=== PATIENT | female | born 1995 | race Caucasian/White ===

== ENCOUNTER 2017-11-11 22:23 | Emergency (ER) | payer SELFPAY ==
[2017-11-11 22:35] VITALS: BP 112/63
--- NOTE | 2017-11-11 23:15 | EDM.PDOC ---
ED HPI GENERAL MEDICAL PROBLEM - General Chief Complaint: Respiratory Problem Stated Complaint: CONGESTION CHEST PAIN AND HOT Time Seen by Provider: 11/11/17 22:39 Source of Information: Reports: Patient, Family History Limitations: Reports: No Limitations - History of Present Illness INITIAL COMMENTS - FREE TEXT/NARRATIVE: The patient presents with a cough, congestion and fever. This all started today. She has a subjective fever. She has some phlegm she is coughing up. She has no ear pain or throat pain. She is 11 weeks with a LNMP of August 24. She has no spotting or discharge. 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 She has no body aches at this time but she is tired. She does have some chest pain with coughing and deep breathing. Onset: Gradual Duration: Hour(s): Location: Reports: Chest Quality: Reports: Ache Severity: Mild Improves with: Reports: None Worsens with: Reports: Breathing (and coughing) Associated Symptoms: Reports: Chest Pain, Cough, cough w sputum, Fever/Chills. Denies: Nausea/Vomiting, Shortness of Breath Treatments BENCH MANAGER: Reports: Other (see below) Other Treatments BENCH MANAGER: none Chest Pain Score (Numeric/FACES): 3 - Related Data Allergies Allergy/AdvReac Type Severity Reaction Status Date / Time acetaminophen [From Percocet] Allergy Hives Verified 08/24/14 20:28 oxycodone HCl [From Percocet] Allergy Hives Verified 08/24/14 20:28 Home Meds: Home Meds PNV95/Ferrous Fumarate/FA [ Tablet] 1 tab PO DAILY 11/11/17 [History] Past Medical History - Past Health History Medical/Surgical History: Denies Medical/Surgical History Social & Family History - Tobacco Use Smoking Status *Q: Never Smoker Second Hand Smoke Exposure: No - Caffeine Use Caffeine Use: Reports: None - Alcohol Use Days Per Week of Alcohol Use: 0 - Recreational Drug Use Recreational Drug Use: No ED ROS GENERAL - Review of Systems Review Of Systems: See Below Constitutional: Reports: Fever, Fatigue HEENT: Reports: No Symptoms Respiratory: Reports: Cough Cardiovascular: Reports: Chest Pain Endocrine: Reports: No Symptoms, Fatigue GI/Abdominal: Reports: No Symptoms : Reports: No Symptoms ED EXAM, GENERAL - Physical Exam Exam: See Below Exam Limited By: No Limitations General Appearance: Alert, No Apparent Distress Ears: Normal External Exam, Normal Canal, Normal TMs Nose: Normal Inspection Throat/Mouth: Normal Inspection Head: Atraumatic, Normocephalic Neck: Normal Inspection Respiratory/Chest: No Respiratory Distress, Lungs Clear, Normal Breath Sounds Cardiovascular: Regular Rate, Rhythm, No Edema, No Murmur GI/Abdominal: Soft, Non-Tender, No Organomegaly, No Mass Back Exam: Normal Inspection Extremities: Normal Inspection Course - Vital Signs Last Recorded V/S: Last Vital Signs Temp 99.1 F 11/11/17 22:32 Pulse 104 H 11/11/17 22:32 Resp 20 11/11/17 22:32 BP 112/63 11/11/17 22:32 Pulse Ox 100 11/11/17 22:32 - Orders/Labs/Meds Orders: Active Orders 24 hr Category Date Time Status INFLUENZA A+B AG SCREEN [RM] Stat Lab 11/11/17 22:45 Ordered - Re-Assessments/Exams Free Text/Narrative Re-Assessment/Exam: 11/11/17 23:15 I ordered an influenza. 11/11/17 23:17 The influenza is negative. She has a viral URI. I will discharge her home. Departure - Departure Time of Disposition: 23:20 Disposition: Home, Self-Care 01 Condition: Good Clinical Impression: Viral upper respiratory infection Qualifiers: Weeks of gestation: 11 weeks Qualified Code(s): Z3A.11 - 11 weeks gestation of - Discharge Information Referrals: PCP,None [Primary Care Provider] - Forms: ED Department Discharge Additional Instructions: Drink plenty of fluids and get some rest. Take tylenol for any fever. Please return if you are worse. - My Orders Last 24 Hours: My Active Orders 11/11/17 22:45 INFLUENZA A+B AG SCREEN [RM] Stat - Assessment/Plan Last 24 Hours: My Active Orders 11/11/17 22:45 INFLUENZA A+B AG SCREEN [RM] Stat
== END 2017-11-11 23:23 | disposition home or self-care (01) ==
LOC: JD.ED 22:23
DX: O99.511 Diseases of the respiratory system complicating pregnancy, first trimester (principal); J06.9 Acute upper respiratory infection, unspecified; Z88.8 Allergy status to other drugs, medicaments and biological substances; Z79.899 Other long term (current) drug therapy; Z3A.11 11 weeks gestation of pregnancy
CPT/HCPCS: 87804; 99282; 99283

== ENCOUNTER 2019-01-18 20:32 | Emergency (ER) | payer MEDICAID, OTHER ==
[2019-01-18 21:07] VITALS: BP 134/87
[2019-01-18] MEDS ORDERED: Sodium Chloride 0.9% 10 ML Syringe FLUSH PRN (21:23)
[2019-01-18] MEDS ORDERED: Sodium Chloride 0.9% 1,000 ML IV ONE (21:23)
[2019-01-18] MEDS ORDERED: Prochlorperazine 10 MG/2 ML SDV IVPUSH ONE (21:23)
[2019-01-18] MEDS ORDERED: Ketorolac 30 MG/ML SDV IVPUSH ONE (21:24)
[2019-01-18] MEDS ORDERED: diphenhydrAMINE 50 MG/ML SDV IVPUSH ONE (21:24)
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
--- NOTE | 2019-01-19 07:30 | CT ---
Head CT Technique: Multiple axial sections through the brain were obtained. Intravenous contrast was not utilized. Comparison: No prior intracranial imaging. Findings: Ventricles along with basal cisterns and sulci over the convexities are within normal limits for the patient's age. No abnormal parenchymal densities are seen. No evidence of intracranial hemorrhage. No midline shift or mass effect is seen. Bone window settings were reviewed which show no acute calvarial abnormality. Slight mucosal thickening is incidentally noted within the left maxillary sinus. Visualized mastoid sinuses are clear. Impression: 1. Sinus findings which are felt to be incidental. 2. No acute intracranial abnormality is identified on noncontrast head CT exam. Diagnostic code #2 I agree with preliminary report from [facility], finalized on 01/18/19, lung 14 PM Central Time
--- NOTE | 2019-01-19 07:30 | CT ---
CT cervical spine Technique: Multiple axial sections were obtained from above C1 inferiorly to the bottom of T2. Reconstructed sagittal and coronal images were reviewed. Comparison: No prior cervical spine imaging. Findings: Vertebral body heights and disc spaces are maintained. No bony central or bony neural foraminal stenosis is seen. No fracture is identified. No abnormal subluxation is seen on the reconstructed sagittal images. Impression: 1. Nothing acute is seen on CT study of the cervical spine. Diagnostic code #1 I agree with preliminary report from [facility], finalized on 01/18/19, 11:16 PM Central Time
== END 2019-01-18 22:49 | disposition home or self-care (01) ==
LOC: JD.ED 20:32
DX: S16.1XXA Strain of muscle, fascia and tendon at neck level, initial encounter (principal); G43.909 Migraine, unspecified, not intractable, without status migrainosus; Z88.6 Allergy status to analgesic agent; Z86.2 Personal history of diseases of the blood and blood-forming organs and certain disorders involving the immune mechanism; V86.99XA Unspecified occupant of other special all-terrain or other off-road motor vehicle injured in nontraffic accident, initial encounter
CPT/HCPCS: 70450; 72125; 96361; 96374; 96375; 99284; J0780; J1200; J1885; J7040

== ENCOUNTER 2021-06-28 03:26 | Emergency (ER) | payer MEDICAID ==
[2021-06-28 03:41] VITALS: BP 136/81; PULSE 86
--- NOTE | 2021-06-28 03:53 | EDM.PDOC ---
ED [facility] GENERAL MEDICAL PROBLEM - General Chief Complaint: Gastrointestinal Problem Stated Complaint: ABD PAIN/NAUSEA Time Seen by Provider: 06/28/21 03:51 Source of Information: Reports: Patient History Limitations: Reports: No Limitations - History of Present Illness INITIAL COMMENTS - FREE TEXT/NARRATIVE: Patient is a 26-year-old female presented to the emergency room with a complaint of lower pelvic pain and cramping. Patient states the pain started while she was asleep. Patient reports the pain is previously being severe but is currently less severe. Pain is in the middle of her lower abdomen/pelvis. No radiation of symptoms. Patient reports associated nausea without vomiting. Patient denies any vaginal bleeding, vaginal discharge, dysuria, hematuria. Last menstrual period was June 03. Patient states she took a test 3 days ago and that was positive. 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: Psychiatric History: Reports: None Hematologic History: Reports: Anemia - Infectious Disease History Infectious Disease History: Reports: Novel Coronavirus Social & Family History - Family History Family Medical History: No Pertinent Family History - Tobacco Use Tobacco Use Status *Q: Never Tobacco User Second Hand Smoke Exposure: No - Caffeine Use Caffeine Use: Reports: Coffee, Energy Drinks - Recreational Drug Use Recreational Drug Use: No ED ROS GENERAL - Review of Systems Review Of Systems: See Below Free Text/Narrative/Comment: In addition to that documented in the HPI above, the additional ROS was obtained: Constitutional: Denies fevers or chills Eyes: Denies vision changes ENMT: Denies sore throat CV: Denies chest pain Resp: Denies SOB GI: Denies vomiting or diarrhea : Denies painful urination MSK: Denies recent trauma Skin: Denies new rashes Neuro: Denies new numbness or tingling or weakness Endocrine: Denies unexpected weight loss Heme: Denies bleeding disorders ED EXAM, GI/ABD - Physical Exam Exam: See Below Text/Narrative:: I have reviewed the triage vital signs Const: Well nourished, well developed, appears stated age Eyes: no conjunctival injection HENT: No signs of trauma or swelling, Neck supple without meningismus CV: Regular Rate Rhythm, Warm, well-perfused extremities RESP: Unlabored respiratory effort GI: soft, non-tender, non-distended, no masses MSK: No gross deformities appreciated Skin: Warm, dry. 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 Sensation and motor function of extremities grossly intact. Psych: Appropriate mood and affect. Course - Vital Signs Last Recorded V/S: Last Vital Signs Temp 36.3 C 06/28/21 03:39 Pulse 86 06/28/21 03:39 Resp 16 06/28/21 03:39 BP 136/81 06/28/21 03:39 Pulse Ox 98 06/28/21 03:39 - Orders/Labs/Meds Orders: Active Orders 24 hr Category Date Time Status OB Transvaginal [US] Stat Exams 06/28/21 05:06 Stop Req Labs: Laboratory Tests 06/28/21 06/28/21 06/28/21 Range/Units 04:00 04:00 04:00 WBC 5.87 (3.98-10.04) K/mm3 RBC 4.53 (3.98-5.22) M/mm3 Hgb 12.8 D (11.2-15.7) gm/dl Hct 38.9 (34.1-44.9) % MCV 85.9 D (79.4-94.8) fl MCH 28.3 (25.6-32.2) pg MCHC 32.9 (32.2-35.5) g/dl RDW Std Deviation 43.5 (36.4-46.3) fL Plt Count 262 (182-369) K/mm3 MPV 10.2 (9.4-12.3) fl Neut % (Auto) 61.2 (34.0-71.1) % Lymph % (Auto) 27.8 (19.3-51.7) % Gregory % (Auto) 9.5 (4.7-12.5) % Eos % (Auto) 1.0 (0.7-5.8) Baso % (Auto) 0.3 (0.1-1.2) % Neut # (Auto) 3.59 (1.56-6.13) K/mm3 Lymph # (Auto) 1.63 (1.18-3.74) K/mm3 Gregory # (Auto) 0.56 H (0.24-0.36) K/mm3 Eos # (Auto) 0.06 (0.04-0.36) K/mm3 Baso # (Auto) 0.02 (0.01-0.08) K/mm3 Sodium 141 (136-145) mEq/L Potassium 3.9 (3.5-5.1) mEq/L Chloride 104 (98-107) mEq/L Carbon Dioxide 25 (21-32) mEq/L Anion Gap 15.9 H (5-15) BUN 11 (7-18) mg/dL Creatinine 0.8 (0.55-1.02) mg/dL Est Cr Clr Drug Dosing 103.63 mL/min Estimated GFR (MDRD) > 60 (>60) mL/min BUN/Creatinine Ratio 13.8 L (14-18) Glucose 112 H (70-99) mg/dL Calcium 8.3 L (8.5-10.1) mg/dL Total Bilirubin 0.2 (0.2-1.0) mg/dL AST 14 L (15-37) U/L ALT 21 (14-59) U/L Alkaline Phosphatase 49 (46-116) U/L Total Protein 7.1 (6.4-8.2) g/dl Albumin 3.6 (3.4-5.0) g/dl Globulin 3.5 gm/dL Albumin/Globulin Ratio 1.0 (1-2) Lipase 130 (73-393) U/L HCG, Quant 46.0 mIU/mL Urine Color (Yellow) Urine Appearance (Clear) Urine pH (5.0-8.0) Ur Specific [place] (1.005-1.030) Urine Protein (Negative) Urine Glucose (UA) (Negative) Urine Ketones (Negative) Urine Occult Blood (Negative) Urine Nitrite (Negative) Urine Bilirubin (Negative) Urine Urobilinogen (0.2-1.0) Ur Leukocyte Esterase (Negative) Urine RBC (0-5) /hpf Urine WBC (0-5) /hpf Ur Squamous Epith Cells (0-5) /hpf Urine Bacteria (FEW) /hpf Urine Mucus (FEW) /hpf Urine HCG, Qual (NEGATIVE) 06/28/21 06/28/21 Range/Units 04:31 04:31 WBC (3.98-10.04) K/mm3 RBC (3.98-5.22) M/mm3 Hgb (11.2-15.7) gm/dl Hct (34.1-44.9) % MCV (79.4-94.8) fl MCH (25.6-32.2) pg MCHC (32.2-35.5) g/dl RDW Std Deviation (36.4-46.3) fL Plt Count (182-369) K/mm3 MPV (9.4-12.3) fl Neut % (Auto) (34.0-71.1) % Lymph % (Auto) (19.3-51.7) % Gregory % (Auto) (4.7-12.5) % Eos % (Auto) (0.7-5.8) Baso % (Auto) (0.1-1.2) % Neut # (Auto) (1.56-6.13) K/mm3 Lymph # (Auto) (1.18-3.74) K/mm3 Gregory # (Auto) (0.24-0.36) K/mm3 Eos # (Auto) (0.04-0.36) K/mm3 Baso # (Auto) (0.01-0.08) K/mm3 Sodium (136-145) mEq/L Potassium (3.5-5.1) mEq/L Chloride (98-107) mEq/L Carbon Dioxide (21-32) mEq/L Anion Gap (5-15) BUN (7-18) mg/dL Creatinine (0.55-1.02) mg/dL Est Cr Clr Drug Dosing mL/min Estimated GFR (MDRD) (>60) mL/min BUN/Creatinine Ratio (14-18) Glucose (70-99) mg/dL Calcium (8.5-10.1) mg/dL Total Bilirubin (0.2-1.0) mg/dL AST (15-37) U/L ALT (14-59) U/L Alkaline Phosphatase (46-116) U/L Total Protein (6.4-8.2) g/dl Albumin (3.4-5.0) g/dl Globulin gm/dL Albumin/Globulin Ratio (1-2) Lipase (73-393) U/L HCG, Quant mIU/mL Urine Color Yellow (Yellow) Urine Appearance Slt cloudy H (Clear) Urine pH 6.0 (5.0-8.0) Ur Specific [place] > or = 1.030 (1.005-1.030) Urine Protein 1+ H (Negative) Urine Glucose (UA) Negative (Negative) Urine Ketones Trace H (Negative) Urine Occult Blood Negative (Negative) Urine Nitrite Negative (Negative) Urine Bilirubin Negative (Negative) Urine Urobilinogen 0.2 (0.2-1.0) Ur Leukocyte Esterase Trace H (Negative) Urine RBC 0-5 (0-5) /hpf Urine WBC 5-10 H (0-5) /hpf Ur Squamous Epith Cells 10-20 H (0-5) /hpf Urine Bacteria Many H (FEW) /hpf Urine Mucus Moderate H (FEW) /hpf Urine HCG, Qual Positive (NEGATIVE) Meds: Medications Discontinued Medications Generic Name Dose Route Start Last Admin Trade Name Stephanq PRN Reason Stop Dose Admin Acetaminophen 650 mg 06/28/21 05:15 06/28/21 05:24 Acetaminophen 325 Mg Tab PO 06/28/21 05:16 650 mg NOW ONE Administration Cephalexin 500 mg 06/28/21 05:15 06/28/21 05:24 Cephalexin 500 Mg Cap PO 06/28/21 05:16 500 mg ONETIME ONE Administration Departure - Departure Time of Disposition: 05:14 Disposition: Home, Self-Care 01 Clinical Impression: First trimester , UTI (urinary tract infection) - Discharge Information Prescriptions: cephALEXin [Keflex] 500 mg PO Q8H #15 cap Instructions: Urinary Tract Infection, Adult, [id number] Referrals: Ranjana Alba PA-C [Primary Care Provider] - Forms: ED Department Discharge Sepsis Event Note (ED) - Evaluation Sepsis Screening Result: No Definite Risk - Focused Exam Vital Signs: Vital Signs Temp Pulse Resp BP Pulse Ox 06/28/21 03:39 36.3 C 86 16 136/81 98 - My Orders Last 24 Hours: My Active Orders 06/28/21 05:06 OB Transvaginal [US] Stat - Assessment/Plan Last 24 Hours: My Active Orders 06/28/21 05:06 OB Transvaginal [US] Stat Assessment:: Patient 26-year-old female with lower pelvic cramping. Vital signs stable in the emergency room. Laboratory studies demonstrate early of approximately 3 weeks. Unlikely ectopic based on my evaluation. No evidence of appendicitis. Patient will be treated for UTI. Instructed to follow-up with OFFICE REP in the next 48 hours.
[2021-06-28] MEDS ORDERED: Cephalexin 500 MG Cap PO ONE (05:15)
[2021-06-28] MEDS ORDERED: Acetaminophen 325 MG Tab PO ONE (05:15)
== END 2021-06-28 05:26 | disposition home or self-care (01) ==
LOC: JD.ED 03:26
DX: O23.41 Unspecified infection of urinary tract in pregnancy, first trimester (principal); N39.0 Urinary tract infection, site not specified; Z88.5 Allergy status to narcotic agent; Z88.8 Allergy status to other drugs, medicaments and biological substances; Z86.16 Personal history of COVID-19; Z3A.01 Less than 8 weeks gestation of pregnancy
CPT/HCPCS: 36415; 80053; 81001; 81025; 83690; 84702; 85025; 99284; A9270

== ENCOUNTER 2021-09-26 20:06 | Emergency (ER) | payer MEDICAID ==
[2021-09-26 20:34] VITALS: BP 109/85; PULSE 102
[2021-09-26] MEDS ORDERED: Sodium Chloride 0.9% 10 ML Syringe FLUSH PRN (20:36)
[2021-09-26] MEDS ORDERED: Sodium Chloride 0.9% 1,000 ML IV STA (20:52)
[2021-09-26] MEDS ORDERED: Ondansetron 4 MG/2 ML SDV IVPUSH ONE (20:52)
[2021-09-26] MEDS ORDERED: HYDROmorphone 0.5 MG/0.5 ML Syringe IVPUSH ONE (21:13)
== END 2021-09-26 23:06 | disposition home or self-care (01) ==
LOC: JD.ED 20:06
DX: O98.512 Other viral diseases complicating pregnancy, second trimester (principal); A08.4 Viral intestinal infection, unspecified; Z88.5 Allergy status to narcotic agent; Z86.16 Personal history of COVID-19; Z3A.16 16 weeks gestation of pregnancy
CPT/HCPCS: 36415; 76705; 80053; 81001; 83690; 85025; 86140; 96374; 96375; 99284; J1170; J2405; J7030

== ENCOUNTER 2022-03-01 21:02 | Inpatient (IN) | payer MEDICAID ==
[2022-03-01] MEDS ORDERED: Nalbuphine HCl 10 MG/ 1ML Amp IVPUSH PRN (21:25)
[2022-03-01] MEDS ORDERED: Sodium Chloride 0.9% 10 ML Syringe FLUSH PRN (21:25)
[2022-03-01] MEDS ORDERED: Ondansetron 4 MG/2 ML SDV IVPUSH PRN (21:25)
[2022-03-01] MEDS ORDERED: Calcium Carbonate 500 MG Tab.Chew PO PRN (21:25)
[2022-03-01] MEDS ORDERED: Oxytocin/Lactated Ringers 10 UNIT/1,000 ML BAG IV SCH ×2 (21:30)
[2022-03-01] MEDS: Lactated Ringers 1,000 ML IV SCH ×3 (21:50→23:57)
[2022-03-01] MEDS ORDERED: fentaNYL 100 MCG/2 ML SDV EPIDUR PRN (22:56)
[2022-03-01] MEDS ORDERED: diphenhydrAMINE 50 MG/ML SDV IVPUSH PRN (22:56)
[2022-03-01] MEDS ORDERED: ePHEDrine 50 MG/ML SDV IVPUSH PRN (22:56)
[2022-03-01] MEDS: Bupivacaine/fentaNYL/NS 100 ML Bag EPIDUR PRN (23:06)
[2022-03-02] MEDS ORDERED: Bupivacaine 0.25% 10 ML SDV ONE
[2022-03-02] MEDS: Lactated Ringers 1,000 ML IV SCH (06:32)
[2022-03-02] MEDS: Bupivacaine/fentaNYL/NS 100 ML Bag EPIDUR PRN (08:00)
[2022-03-02] MEDS ORDERED: Sodium Chloride 0.9% 10 ML Syringe FLUSH SCH (09:00)
[2022-03-02] MEDS ORDERED: Witch Hazel Medicated Pads 40/Jar TOP PRN (14:35)
[2022-03-02] MEDS ORDERED: Benzocaine/Menthol 20%-0.5% Spray 78 GM Cannister TOP PRN (14:35)
[2022-03-02] MEDS ORDERED: Acetaminophen 325 MG Tab PO PRN (14:35)
[2022-03-02] MEDS: Ibuprofen 600 MG Tab PO PRN (18:08)
[2022-03-03] MEDS: Ibuprofen 600 MG Tab PO PRN ×2 (02:36→07:41)
[2022-03-03 08:14] VITALS: BP 119/68; PULSE 70
== END 2022-03-03 13:41 | disposition home or self-care (01) | DRG 807 ==
LOC: JD.OBCHECK 21:02 → JD.OB 21:08 → JD.OBCHECK 21:25 → OBSVTOIN 03-02 13:12 → JD.OB 03-02 13:13
PROVIDERS: ADMIT Obstetrics & Gynecology; ATTEND Obstetrics & Gynecology
PROC: 10E0XZZ Delivery of Products of Conception, External Approach (ICD-10-PCS; principal; 2022-03-02)
PROC: 10907ZC Drainage of Amniotic Fluid, Therapeutic from Products of Conception, Via Natural or Artificial Opening (ICD-10-PCS; 2022-03-02)
PROC: 3E0R3BZ Introduction of Anesthetic Agent into Spinal Canal, Percutaneous Approach (ICD-10-PCS; 2022-03-02)
PROC: 00HU33Z Insertion of Infusion Device into Spinal Canal, Percutaneous Approach (ICD-10-PCS; 2022-03-02)
DX: O99.62 Diseases of the digestive system complicating childbirth (principal); Z37.0 Single live birth; K21.9 Gastro-esophageal reflux disease without esophagitis; O99.214 Obesity complicating childbirth; Z86.16 Personal history of COVID-19; Z88.5 Allergy status to narcotic agent; Z3A.38 38 weeks gestation of pregnancy
CPT/HCPCS: 36415; 51702; 59025; 59409; 85025; 86592; 86850; 86900; 86901; A9270-GY; J2590; J3010; J3490; J7120

== ENCOUNTER 2023-12-05 16:58 | Inpatient (IN) | payer MEDICAID ==
[2023-12-05] MEDS: Cyclobenzaprine 10 MG Tab PO ONE (18:10)
[2023-12-05] MEDS ORDERED: Nalbuphine 10 MG/ML Syringe IVPUSH PRN (21:20)
[2023-12-05] MEDS ORDERED: Acetaminophen 325 MG Tab PO PRN (21:20)
[2023-12-05] MEDS ORDERED: Sodium Chloride 0.9% 10 ML Syringe FLUSH PRN (21:20)
[2023-12-05] MEDS ORDERED: Lidocaine 1% 50 ML MDV INJECT PRN (21:20)
[2023-12-05 21:44] LABS: BASOPHILS PERCENT AUTO 0.2 % (0.0-1.0); EOSINOPHILS ABSOLUTE AUTO 0.1 K/mm3 (0.0-0.4); EOSINOPHILS PERCENT AUTO 0.7 % (0.0-6.0); HEMATOCRIT 31.6 % (37.0-47.0); HEMOGLOBIN 10.1 gm/dl (12.0-16.0); IMMATURE GRAN ABSOLUTE AUTO 0.05 K/mm3 (0.00-0.05); IMMATURE GRAN PERCENT AUTO 0.5 % (0.0-0.4); LYMPHOCYTES ABSOLUTE AUTO 2.4 K/mm3 (1.0-4.8); MEAN CORPUSCULAR HEMOGLOBIN 24.5 pg (28.0-32.0); MEAN CORPUSCULAR VOLUME 76.7 fl (83.0-99.0); MEAN PLATELET VOLUME 11.2 fl (9.4-12.3); MONOCYTES ABSOLUTE AUTO 0.8 K/mm3 (0.0-0.8); MONOCYTES PERCENT AUTO 7.9 % (0.0-8.0); NEUTROPHILS ABSOLUTE AUTO 7.2 K/mm3 (1.8-7.7); NEUTROPHILS PERCENT AUTO 67.7 % (41.0-71.0); PLATELET COUNT,PLT 236 K/mm3 (150-400); RED BLOOD CELL COUNT 4.12 M/mm3 (4.10-5.30); WHITE BLOOD CELL COUNT,WBC 10.57 K/mm3 (3.9-11.3)
[2023-12-05] MEDS: Lactated Ringers 1,000 ML IV SCH (21:53)
[2023-12-05] MEDS: Oxytocin/Lactated Ringers 30 UNIT/500 ML BAG IV SCH (21:54)
[2023-12-05] MEDS: Sodium Chloride 0.9% 10 ML Syringe FLUSH SCH (22:49)
[2023-12-05] MEDS ORDERED: diphenhydrAMINE 50 MG/ML SDV IVPUSH PRN (23:43)
[2023-12-05] MEDS: fentaNYL 100 MCG/2 ML SDV EPIDUR PRN (23:50)
[2023-12-05] MEDS: Bupivacaine/fentaNYL/NS 100 ML Bag EPIDUR PRN (23:50)
[2023-12-06] MEDS ORDERED: Lidocaine 1% 10 ML MDV ONE (04:00)
[2023-12-06] MEDS ORDERED: Lidocaine 1.5% with EPINEPHrine 1:200,000 5 ML Amp ONE (04:00)
[2023-12-06] MEDS: ePHEDrine 50 MG/ML SDV IVPUSH PRN (04:52)
[2023-12-06] MEDS: Misoprostol 200 MCG Tab RECTAL ONE (09:01)
[2023-12-06] MEDS ORDERED: Tranexamic Acid 1,000 MG/10 ML Vial ONE (09:06)
[2023-12-06] MEDS: Methylergonovine 0.2 MG/1 ML Amp IM PRN (09:08)
[2023-12-06] MEDS: Oxytocin/Lactated Ringers 30 UNIT/500 ML BAG IV SCH (09:20)
[2023-12-06] MEDS ORDERED: Calcium Carbonate 500 MG Tab.Chew PO PRN (09:34)
[2023-12-06] MEDS ORDERED: Hydrocortisone Acetate 25 MG Supp RECTAL PRN (09:42)
[2023-12-06] MEDS ORDERED: Simethicone 80 MG Tab.Chew PO PRN (09:42)
[2023-12-06] MEDS ORDERED: Oxytocin/Lactated Ringers 30 UNIT/500 ML BAG IV SCH (09:45)
[2023-12-06] MEDS ORDERED: Misoprostol 200 MCG Tab ONE (10:00)
[2023-12-06] MEDS: Benzocaine/Menthol 20%-0.5% Spray 78 GM Cannister TOP PRN (11:10)
[2023-12-06] MEDS: Witch Hazel Medicated Pads 40/Jar TOP PRN (11:10)
[2023-12-06] MEDS: Ibuprofen 600 MG Tab PO PRN (16:43)
[2023-12-06] MEDS: Acetaminophen 325 MG Tab PO PRN (20:37)
[2023-12-06] MEDS ORDERED: Magnesium Hydroxide 400 MG/5 ML Susp 30 ML Cup PO PRN (21:00)
[2023-12-07 09:34] VITALS: BP 131/79; PULSE 65
[2023-12-07] MEDS: Prenatal Multivitamin with Calcium/Folic Acid/Iron Tab PO SCH (11:01)
[2023-12-07] MEDS: Docusate Sodium 100 MG Cap PO PRN (11:01)
== END 2023-12-07 12:25 | disposition home or self-care (01) | DRG 807 ==
LOC: JD.OBCHECK 16:58 → JD.OB 16:58 → JD.OBCHECK 21:10 → OBSVTOIN 12-06 08:51 → JD.OB 12-06 08:52
PROVIDERS: ADMIT Obstetrics & Gynecology; ATTEND Obstetrics & Gynecology
PROC: 10E0XZZ Delivery of Products of Conception, External Approach (ICD-10-PCS; principal; 2023-12-06)
PROC: 10907ZC Drainage of Amniotic Fluid, Therapeutic from Products of Conception, Via Natural or Artificial Opening (ICD-10-PCS; 2023-12-06)
PROC: 3E033VJ Introduction of Other Hormone into Peripheral Vein, Percutaneous Approach (ICD-10-PCS; 2023-12-06)
PROC: 3E0R3BZ Introduction of Anesthetic Agent into Spinal Canal, Percutaneous Approach (ICD-10-PCS; 2023-12-06)
PROC: 00HU33Z Insertion of Infusion Device into Spinal Canal, Percutaneous Approach (ICD-10-PCS; 2023-12-06)
DX: O76 Abnormality in fetal heart rate and rhythm complicating labor and delivery (principal); Z37.0 Single live birth; O99.02 Anemia complicating childbirth; O69.81X0 Labor and delivery complicated by cord around neck, without compression, not applicable or unspecified; O70.0 First degree perineal laceration during delivery; Z3A.38 38 weeks gestation of pregnancy; Z88.8 Allergy status to other drugs, medicaments and biological substances; Z86.16 Personal history of COVID-19; Z98.890 Other specified postprocedural states
CPT/HCPCS: 36415; 51702; 59025; 59409; 84112; 85025; 86592; A9270-GY; J2210; J3010; J3490; J7120; J7999

== ENCOUNTER 2025-05-11 15:18 | Emergency (ER) | payer MEDICAID ==
[2025-05-11 16:12] VITALS: PULSE 106
[2025-05-11 16:48] LABS: BASOPHILS ABSOLUTE AUTO 0.0 K/mm3 (0.0-0.2); BASOPHILS PERCENT AUTO 0.4 % (0.0-1.0); EOSINOPHILS ABSOLUTE AUTO 0.1 K/mm3 (0.0-0.4); EOSINOPHILS PERCENT AUTO 1.0 % (0.0-6.0); IMMATURE GRAN ABSOLUTE AUTO 0.02 K/mm3 (0.00-0.05); IMMATURE GRAN PERCENT AUTO 0.2 % (0.0-0.4); LYMPHOCYTES ABSOLUTE AUTO 1.1 K/mm3 (1.0-4.8); LYMPHOCYTES PERCENT AUTO 13.2 % (24.0-44.0); MEAN PLATELET VOLUME 9.8 fl (9.4-12.3); MONOCYTES ABSOLUTE AUTO 0.5 K/mm3 (0.0-0.8); MONOCYTES PERCENT AUTO 6.1 % (0.0-8.0); NEUTROPHILS ABSOLUTE AUTO 6.6 K/mm3 (1.8-7.7); NEUTROPHILS PERCENT AUTO 79.1 % (41.0-71.0); NRBC ABSOLUTE 0.00 (0.00-0.02); NRBC PERCENT 0.0 % (0.0-0.2); PLATELET COUNT,PLT 285 K/mm3 (150-400); RED BLOOD CELL COUNT 5.02 M/mm3 (4.10-5.30); WHITE BLOOD CELL COUNT,WBC 8.35 K/mm3 (3.9-11.3)
[2025-05-11 17:31] LABS: A/G RATIO 0.9 (1-2); ALANINE AMINOTRANSFERASE,ALT 31.0 U/L (14-59); ASPARTATE AMNIOTRANSFERASE,AST 18.0 U/L (15-37); BILIRUBIN TOTAL 0.3 mg/dL (0.2-1.0); BLOOD UREA NITROGEN,BUN 6.0 mg/dL (7-18); CARBON DIOXIDE,CO2 25.0 mEq/L (21-32); CHLORIDE,CL 107.0 mEq/L (98-107); CREATININE 0.6 mg/dL (0.55-1.02); EST CRCL DRUG DOSING (CG) 133.32 mL/min; ESTIMATED GFR 124.0 mL/min (>60); GLUCOSE RANDOM 119.0 mg/dL (70-99); HCG QUANTITATIVE 9198.0 mIU/mL; POTASSIUM,K 4.0 mEq/L (3.5-5.1); PROTEIN TOTAL,TP 8.4 g/dl (6.4-8.2); SODIUM,NA 141.0 mEq/L (136-145)
[2025-05-11 19:48] VITALS: BP 147/86
== END 2025-05-11 19:40 | disposition home or self-care (01) ==
LOC: JD.ED 15:18
DX: O03.4 Incomplete spontaneous abortion without complication (principal); Z86.16 Personal history of COVID-19; Z88.5 Allergy status to narcotic agent; Z79.899 Other long term (current) drug therapy
CPT/HCPCS: 36415; 76817; 76817-26; 80053; 84702; 85025; 86900; 86901; 99283; 99284